=== PATIENT | female | born 1965 | race Caucasian/White ===

== ENCOUNTER 2021-04-13 19:28 | Emergency (ER) | payer OTHER ==
[2021-04-13 20:12] LABS: Basophils # (A) 0.1 k/uL (0-0.2); Basophils % (A) 2 %; Eosinophils # (A) 0.1 k/uL (0-0.7); Eosinophils % (A) 2 %; HGB 12.9 gm/dL (11.4-16.0); Lymphocytes # (A) 1.7 k/uL (1.0-4.8); Lymphocytes % (A) 37 %; MCHC 33.9 g/dL (31.0-37.0); MCV 91.4 fL (80.0-100.0); Mean Platelet Volume 6.7; Monocytes # (A) 0.3 k/uL (0-1.0); Monocytes % (A) 8 %; Neutrophils # (A) 2.3 k/uL (1.3-7.7); Neutrophils % (A) 50 %; Platelet Count 312 k/uL (150-450); RBC 4.16 m/uL (3.80-5.40); RDW 13.7 % (11.5-15.5); WBC 4.5 k/uL (3.8-10.6)
--- NOTE | 2021-04-13 20:13 | ED ---
Chest Pain HPI - General Chief Complaint: Chest Pain Stated Complaint: Poss blood clot in lung Time Seen by Provider: 04/13/21 19:38 Source: patient, RN notes reviewed Mode of arrival: ambulatory Limitations: no limitations - History of Present Illness Initial Comments: This is a 55-year-old female history of bilateral mastectomy 20 years ago for breast cancer was diagnosed with Coban dated 19 and hospitalized between March 11 of March 15 who states she developed a cough over last several days with sharp right-sided chest pain. She states the pain is her with deep breathing and coughing she states she always has a slight cough with phlegm no change in color no fevers chills nausea vomiting sweats. She was seen by her doctor via telemedicine and told to come in for evaluation for possible blood clots. She did have a chest x-ray done yesterday at outpatient clinic which was apparently within normal limits. No other complaints or modifying factors this time no trauma reported MD Complaint: chest pain - Related Data Home Medications Medication Instructions Recorded Confirmed Berberine 1 tab PO DAILY 04/13/21 04/13/21 Saffron 1 tab PO DAILY 04/13/21 04/13/21 Previous Rx's Medication Instructions Recorded Azithromycin [Zithromax Z-pack (6 250 mg PO DIRECTED 5 Days #6 tab 04/13/21 tabs)] Ibuprofen 800 mg PO Q6HR PRN #20 tablet 04/13/21 Allergies Allergy/AdvReac Type Severity Reaction Status Date / Time No Known Allergies Allergy Verified 04/13/21 20:41 Review of Systems ROS Statement: Those systems with pertinent positive or pertinent negative responses have been documented in the HPI. ROS Other: All systems not noted in ROS Statement are negative. EKG Findings - EKG Results: EKG: interpreted by ERMD, WNL, sinus rhythm, normal axis, normal QRS, normal ST/T, no acute changes (Normal sinus rhythm of 75. Interval 122 QRS duration 82 QT since QTC 362/[address]-T wave changes) Past Medical History Past Medical History: Cancer Additional Past Medical History / Comment(s): covid 03/17, breast ca History of Any Multi-Drug Resistant Organisms: None Reported Past Surgical History: Ear Surgery, Tonsillectomy Additional Past Surgical History / Comment(s): johann mastectomy Past Psychological History: ADD/ADHD Smoking Status: Never smoker Past Alcohol Use History: Occasional Past Drug Use History: None Reported General Exam - General Exam Comments Initial Comments: This is a well-developed sec appearing female who is awake alert oriented 3 Limitations: no limitations General appearance: alert, in no apparent distress Head exam: Present: atraumatic, normocephalic, normal inspection Eye exam: Present: normal appearance, PERRL, EOMI. Absent: scleral icterus, conjunctival injection, periorbital swelling ENT exam: Present: normal exam, mucous membranes moist Neck exam: Present: normal inspection. Absent: tenderness, meningismus, lymphadenopathy Respiratory exam: Present: normal lung sounds bilaterally. Absent: respiratory distress, wheezes, rales, rhonchi, stridor Cardiovascular Exam: Present: regular rate, normal rhythm, normal heart sounds. Absent: systolic murmur, diastolic murmur, rubs, gallop, clicks GI/Abdominal exam: Present: soft, normal bowel sounds. Absent: distended, tenderness, guarding, rebound, rigid Extremities exam: Present: normal inspection, full ROM, normal capillary refill. Absent: tenderness, pedal edema, joint swelling, calf tenderness Back exam: Present: normal inspection Neurological exam: Present: alert, oriented X3, CN II-XII intact Psychiatric exam: Present: normal affect, normal mood Skin exam: Present: warm, dry, intact, normal color. Absent: rash Course Vital Signs 04/13/21 04/13/21 04/13/21 19:30 20:04 21:27 Temperature 98.1 F 98.2 F Pulse Rate 90 78 81 Respiratory 20 18 16 Rate Blood Pressure 110/74 117/74 102/75 O2 Sat by Pulse 100 97 98 Oximetry - Reevaluation(s) Reevaluation #1: 04/13/21 21:38 Reevaluation patient reveals no further progress of her symptoms. Chest Pain MDM - MDM Imaging reviewed no acute findings. I did discuss findings with the patient she does have evidence on CAT scan of residual pneumonia and evidence of atypical pneumonia. No evidence of PE. Discharged on appropriate medication we did a long discussion regarding the findings. Also I did suggest increasing her oral fluids she does not drink enough Disposition Clinical Impression: Pneumonia, Atypical chest pain Disposition: HOME SELF-CARE Condition: Good Instructions (If sedation given, give patient instructions): Chest Pain (ED), Community Acquired Pneumonia (ED) Prescriptions: Ibuprofen 800 mg PO Q6HR PRN #20 tablet PRN Reason: Pain Azithromycin [Zithromax Z-pack (6 tabs)] 250 mg PO DIRECTED 5 Days #6 tab Is patient prescribed a controlled substance at d/c from ED?: No Referrals: None,Stated [Primary Care Provider] - 1-2 days
[2021-04-13 20:21] LABS: Albumin 4.2 g/dL (3.5-5.0); Calcium 9.8 mg/dL (8.4-10.2); Magnesium 2.1 mg/dL (1.6-2.3); Total Bilirubin 0.3 mg/dL (0.2-1.3); Total Protein 6.5 g/dL (6.3-8.2)
[2021-04-13 20:26] LABS: D-Dimer 0.36 mg/L FEU (<0.60); INR 0.9 (<1.2); Partial Thromboplastin Time 22.9 sec (22.0-30.0); Prothrombin Time 9.7 sec (9.0-12.0)
--- NOTE | 2021-04-13 20:56 | CT ---
EXAMINATION TYPE: CT angio chest DATE OF EXAM: 04/13/2021 8:24 PM COMPARISON: None available. HISTORY: Chest pain after coughing or sneezing. History of covid. CT DLP: 231.4 mGycm Automated exposure control for dose reduction was used. CONTRAST: CTA scan of the thorax is performed with IV Contrast, patient injected with 65ml mL of Isovue 370, pu lmonary embolism protocol. MIP images are created and reviewed. FINDINGS: LUNGS: There is subtle bilateral mild patchy ground glass opacities, predominantly in the bilateral l ower lobes and lingula. There is no pleural effusion or pneumothorax seen. The tracheobronchial tr ee is patent. MEDIASTINUM: There is satisfactory enhancement of the pulmonary artery and its branches, there is no CT evidence for pulmonary embolism. There are no greater than 1 cm hilar or mediastinal lymph nodes. No pericardial effusion is seen. OTHER: Subtle nondisplaced fractures of the anterior right third through sixth ribs. Bilateral breas t implants seen. IMPRESSION: SUBTLE MILD PATCHY COARSE OPACITIES, CONCERNING FOR ATYPICAL PNEUMONIA TO INCLUDE COVID PNEUMONIA. Subtle age-indeterminate right rib fractures.
[2021-04-13 21:28] VITALS: TEMP 98.2
[2021-04-13 21:50] VITALS: BP 112/76; PULSE 82; RESP 18
[2021-04-13] MEDS: AZITHROMYCIN 500 MG TAB PO STA ×2 (21:51→21:52)
== END 2021-04-13 21:56 | disposition home or self-care (01) ==
LOC: EC 19:28
DX: J18.9 Pneumonia, unspecified organism (principal); Z85.3 Personal history of malignant neoplasm of breast; Z90.09 Acquired absence of other part of head and neck; Z90.13 Acquired absence of bilateral breasts and nipples
CPT/HCPCS: 36415; 93005; 85379; 83880; 80053; 82550; 83690; 83735; 84484; 85025; 85610; 85730; 71275; 99285; Q9967